=== PATIENT | male | born 1965 | race Caucasian/White ===

== ENCOUNTER → 2022-06-28 15:18 | Outpatient (BNVA) | payer OTHER, SELFPAY | PROVIDERS: Visit Provider Specialist | DX: G56.03 Carpal tunnel syndrome, bilateral upper limbs (principal); G62.89 Other specified polyneuropathies | CPT/HCPCS: 95913 ==

== ENCOUNTER → 2022-08-09 08:34 | Outpatient (BNVA) | payer OTHER, SELFPAY | PROVIDERS: Visit Provider Specialist | DX: R20.0 Anesthesia of skin (principal); R20.2 Paresthesia of skin; G56.02 Carpal tunnel syndrome, left upper limb; G62.9 Polyneuropathy, unspecified; G25.81 Restless legs syndrome; M21.41 Flat foot [pes planus] (acquired), right foot; M21.42 Flat foot [pes planus] (acquired), left foot | CPT/HCPCS: 36415; 82085; 82607; 85651; 86140; 86334; 99204 ==

== ENCOUNTER → 2022-11-02 12:19 | Outpatient (BNVA) | payer OTHER, SELFPAY | PROVIDERS: Visit Provider Specialist | DX: G56.02 Carpal tunnel syndrome, left upper limb (principal); G62.9 Polyneuropathy, unspecified; G25.81 Restless legs syndrome | CPT/HCPCS: 99213 ==

== ENCOUNTER → 2023-01-02 10:06 | Outpatient (BNVA) | payer OTHER, SELFPAY | PROVIDERS: Referring Provider Specialist; Visit Provider Specialist | DX: G56.02 Carpal tunnel syndrome, left upper limb (principal) | CPT/HCPCS: 73110; 99204 ==

== ENCOUNTER → 2023-02-27 09:41 | Outpatient (BNVA) | payer OTHER, SELFPAY | PROVIDERS: Visit Provider Specialist | DX: G56.02 Carpal tunnel syndrome, left upper limb (principal); G62.9 Polyneuropathy, unspecified; R20.0 Anesthesia of skin; R20.2 Paresthesia of skin | CPT/HCPCS: 99213 ==

== ENCOUNTER → 2023-06-23 11:49 | Outpatient (BNVA) | payer OTHER, SELFPAY | PROVIDERS: Visit Provider Nurse Practitioner | DX: Z01.810 Encounter for preprocedural cardiovascular examination (principal); G56.02 Carpal tunnel syndrome, left upper limb | CPT/HCPCS: 36415; 80053; 85025; 99214 ==

== ENCOUNTER 2023-07-21 06:10 | Day surgery (SDC) | payer OTHER, SELFPAY ==
[2023-07-21] VITALS (9 sets, daily range): BP systolic 97–127; BP diastolic 69–85; PULSE 79–88; RESP 10–20; TEMP 36.6–36.7; O2SAT 93–98; BMI 31.1
[2023-07-21] MEDS: CELEcoxib 200 mg Capsule 400 MG PO (06:52)
[2023-07-21] MEDS: sodium chloride 0.9% 1,000 ML 30 ML IV (06:54)
--- NOTE | 2023-07-21 07:06 | ANES.PREANE2 ---
Pre-Anesthetic Assessment Height/Weight: Height 1.83 m O2 Del Method Room Air 07/21/23 06:44 Operation Date: 07/21/23 10:10 Proposed Procedures p Left wrist carpal tunnel release [id number],G56.02(Left) - Dixie Maciel MD Familial anesthetic complications: none Was Beta Nasim taken within 24 hours: N/A Was Clonidine taken within 24 hours: N/A Last intake: Intake Last Liquid Date 07/20/23 Last Liquid Time 20:00 Last Solid Date 07/20/23 Last Solid Time 20:00 Social No alcohol and No tobacco Exam alert, oriented x 3, clear to auscultation bilaterally and regular rate & rhythm Airway Dentition: full History/ROS No significant complaints Anesthetic Plan ASA status: 1 Anesthesia: General Risk of > 500 ml blood loss (7ml/kg in children): No Medications/Allergies Home Medications Medication Instructions Recorded Confirmed Last Taken Type bupropion HCl 300 mg 24 hr tablet, 300 mg PO QAM 06/28/22 07/20/23 07/20/23 History extended release pramipexole 1 mg tablet (Mirapex) 1 mg PO BID #90 tabs 07/14/23 07/20/23 07/20/23 Rx Allergies Allergy/AdvReac Type Severity Reaction Status Date / Time No Known Allergies Allergy Verified 06/23/23 10:36 Current Medications Generic Name Dose Route Start Last Admin Trade Name Freq PRN Reason Stop Dose Admin Sodium Chloride 1,000 mls @ 30 mls/hr 07/21/23 06:30 07/21/23 06:54 Sodium Chloride 0.9% IV 07/22/23 06:29 30 mls/hr .Q24H CARLEY Administration PFSH Anesthesia Social History Smoking and tobacco/nicotine status: never used tobacco/nicotine Alcohol intake: never Substance/Drug Use: never Data Anesthesia Cardiac Studies: No Data to Display
[2023-07-21] MEDS: gabapentin 300 mg Capsule PO (07:08)
[2023-07-21] MEDS: acetaminophen 1,000 MG/100 ML PIGGYBACK 400 MG IV (07:08)
--- NOTE | 2023-07-21 10:23 | P.HPUD_ITS ---
Surgery/Procedure H&P Update DATE OF PROCEDURE: July 21, 2023 DATE H&P PERFORMED: 07/23/23 H&P UPDATE INFORMATION: I have reviewed H&P completed within last 30 days, I have examined patient prior to procedure, No changes to prior documentation and [place] [facility] [place] indicated PRIMARY INDICATION FOR PROCEDURE: Left carpal tunnel syndrome PLANNED PROCEDURE: Operation Date: 07/21/23 10:10 Proposed Procedures p Left wrist carpal tunnel release [id number],G56.02(Left) - Dixie Maciel MD Related Problem List Diagnoses (1) Left carpal tunnel syndrome:
[2023-07-21] MEDS: ceFAZolin 2,000 MG in sodium chloride 0.9% (plus) 50 ML 100 MG IV (10:47)
[2023-07-21] MEDS: BUPivacaine 0.5% INJ 30 mL XX (11:08)
--- NOTE | 2023-07-21 11:54 | PM.OP ---
Operative Report Date of procedure: July 21, 2023 Pre-op diagnosis: Left carpal tunnel syndrome Post-op diagnosis: Left carpal tunnel syndrome Post-op findings: Significant compression across the median nerve with dense fibrous tissue in the carpal canal Procedure done: Left carpal tunnel release Pathology: None Surgeon: Dixie Maciel MD Boiler Or Engine Operator: None Anesthesia: General (Per LMA, ASA 1) Estimated blood loss (mL): 5 Tourniquet time (min): 24 (At 250 mmHg) IV fluids (mL): 1,000 Urine output (mL): 0 (No Farley) Complications: None Condition: stable Disposition: PACU (Then return to same-day surgery for discharge to home) Brief History: This 57-year-old gentleman presented to the office complaining of left wrist pain as well as numbness and tingling and pain that was sharp and needlelike. EMG and nerve conductions were done on May 29, 2023, and these demonstrated findings consistent with carpal tunnel syndrome which was moderately severe. After discussion, the patient wished to proceed with carpal tunnel release. Questions were answered and consents were signed. Procedure: The patient was brought to the operating theater. Patient was administered general anesthesia per LMA, ASA 1. The tourniquet was elevated after the arm was exsanguinated to 250 mmHg for a total tourniquet time of 24 minutes. The patient was also given Ancef 2 g preoperatively. The arm was then prepped and draped with DuraPrep in usual fashion with the arm draped free. A surgical pause was performed. At the time, the surgical pause, we confirmed the site and side of surgery. We also confirmed the patient's identity, appropriate and timely administration of preoperative antibiotics and preoperative surgical markings. An incision was then made along the thenar crease. The incision crossed the wrist joint in a curvilinear fashion. Dissection continued through skin and soft tissues using a scalpel. The palmaris longus was identified along with the transverse carpal ligament. Each of these was released carefully to avoid injury to the median nerve. We were able to dissect gently into the carpal canal which was noted to be quite tight with significant compression across the median nerve. The nerve was visualized and was an hourglass shape. The canal was subsequently palpated to assure there was no bony encroachment upon the canal. There was a quite thickened fibrous tissue within the canal, and this was opened longitudinally as well. The canal was then palpated distally and proximally to assure that my small finger was passed easily without impingement. Finding this to be so, attention was directed to closure. The wound was irrigated with ropivacaine plain. It was then closed with 3-0 nylon in an interrupted mattress fashion. Sterile dressing was then placed consisting of OPTi light, fluffed fluffs, sterile soft roll, and an Eladio wrap. The tourniquet was released after 24 minutes. There were no complications. There were no specimens. The procedure was well tolerated. Plan is the patient will be discharged home. Related Problem List Diagnoses (1) Left carpal tunnel syndrome:
--- NOTE | 2023-07-21 13:38 | ANE.PACU2 ---
Inpatient post-anesthesia follow up: Airway intact: Yes Vital signs: Temperature 97.8 F Pulse Rate 79 Respiratory Rate 16 Blood Pressure 114/72 Pulse Oximetry 97 Oxygen Delivery Me thod Room Air Oxygen Flow Rate 6 Fraction of Inspir ed Oxygen Hydration adequate: Yes Nausea and vomiting: No Pain level: 1 Mental status: Baseline
== END 2023-07-21 12:45 | disposition home or self-care (01) ==
PROVIDERS: Visit Provider Specialist
PROC: (CPT 64721; principal; 2023-07-21 10:10)
DX: G56.02 Carpal tunnel syndrome, left upper limb (principal)
CPT/HCPCS: 64721; J0131; J0690; J1100; J2405; J2704; J3010; J3490; J7030

== ENCOUNTER → 2023-08-04 08:08 | Outpatient (BNVA) | payer OTHER, SELFPAY | PROVIDERS: Visit Provider Nurse Practitioner | DX: G56.02 Carpal tunnel syndrome, left upper limb (principal); Z98.890 Other specified postprocedural states | CPT/HCPCS: 73130; 99024 ==

== ENCOUNTER → 2023-09-20 13:45 | Outpatient (BNVA) | payer OTHER, SELFPAY | PROVIDERS: Visit Provider Nurse Practitioner | DX: Z98.890 Other specified postprocedural states (principal); G56.03 Carpal tunnel syndrome, bilateral upper limbs | CPT/HCPCS: 99213 ==

== ENCOUNTER 2023-10-11 09:30 | Outpatient (RCR) | payer OTHER, SELFPAY | END 2023-10-19 23:59 | disposition home or self-care (01) | LOC: SOT 09:30 | PROVIDERS: Visit Provider Nurse Practitioner | DX: Z47.89 Encounter for other orthopedic aftercare (principal) | CPT/HCPCS: 97110; 97166 ==

== ENCOUNTER → 2023-11-01 12:40 | Outpatient (BNVA) | payer OTHER, SELFPAY | PROVIDERS: Visit Provider Specialist | DX: G25.81 Restless legs syndrome (principal); G62.9 Polyneuropathy, unspecified | CPT/HCPCS: 99212 ==

== ENCOUNTER → 2023-11-10 09:47 | Outpatient (BNVA) | payer OTHER, SELFPAY | PROVIDERS: Visit Provider Nurse Practitioner | DX: M18.11 Unilateral primary osteoarthritis of first carpometacarpal joint, right hand (principal); G56.01 Carpal tunnel syndrome, right upper limb; Z98.890 Other specified postprocedural states | CPT/HCPCS: 99214 ==

== ENCOUNTER → 2024-03-04 12:45 | Outpatient (BNVA) | payer OTHER, SELFPAY | PROVIDERS: Visit Provider Specialist | DX: G56.01 Carpal tunnel syndrome, right upper limb (principal); M18.11 Unilateral primary osteoarthritis of first carpometacarpal joint, right hand | CPT/HCPCS: 73130; 99214 ==

== ENCOUNTER 2024-03-19 05:46 | Day surgery (SDC) | payer OTHER, SELFPAY ==
[2024-03-19] VITALS (9 sets, daily range): BP systolic 106–133; BP diastolic 75–92; PULSE 71–90; RESP 16–18; TEMP 36.1–36.4; O2SAT 92–98; BMI 28.5
[2024-03-19] MEDS: CELEcoxib 200 mg Capsule 400 MG PO (06:16)
[2024-03-19] MEDS: gabapentin 300 mg Capsule PO (06:16)
[2024-03-19] MEDS: acetaminophen 1,000 MG/100 ML PIGGYBACK 400 MG IV (06:17)
[2024-03-19] MEDS: sodium chloride 0.9% 1,000 ML 30 ML IV (06:18)
--- NOTE | 2024-03-19 06:30 | ANES.PREANE2 ---
Pre-Anesthetic Assessment Height/Weight: Height 1.83 m Weight 95.254 kg Temp Pulse Resp BP Pulse Ox O2 Del Method 97.6 F 90 18 133/92 97 Room Air 03/19/24 06:06 03/19/24 06:06 03/19/24 06:06 03/19/24 06:06 03/19/24 06:06 03/19/24 06:06 Operation Date: 03/19/24 07:00 Proposed Procedures p Carpal Tunnel Release(Right) - Dixie Mcaiel MD Familial anesthetic complications: None Was Beta Nasim taken within 24 hours: N/A Was Clonidine taken within 24 hours: N/A Last intake: Intake Last Liquid Date 03/18/24 Last Liquid Time 20:00 Last Solid Date 03/18/24 Last Solid Time 20:00 Social No alcohol and No tobacco Exam alert, oriented x 3, clear to auscultation bilaterally and regular rate & rhythm Airway Mallampati: Class III Dentition: other (front upper bridge is chipped) Neuropsych RLS Anesthetic Plan ASA status: 2 Anesthesia: General Risk of > 500 ml blood loss (7ml/kg in children): No Medications/Allergies Home Medications Medication Instructions Recorded Confirmed Last Taken Type bupropion HCl 300 mg 24 hr tablet, 300 mg PO QAM 06/28/22 03/18/24 03/18/24 History extended release gabapentin 300 mg capsule 300 mg PO DAILY PRN Pain 09/20/23 03/18/24 Unknown History pramipexole 1 mg tablet 1 mg PO BID #90 tabs 11/01/23 03/18/24 03/18/24 Rx Allergies Allergy/AdvReac Type Severity Reaction Status Date / Time No Known Allergies Allergy Verified 03/04/24 13:19 Current Medications Generic Name Dose Route Start Last Admin Trade Name Freq PRN Reason Stop Dose Admin Sodium Chloride 1,000 mls @ 30 mls/hr 03/19/24 06:00 03/19/24 06:18 Sodium Chloride 0.9% IV 03/20/24 05:59 30 mls/hr .Q24H CARLEY Administration PFSH Anesthesia Medical History Arthritis of carpometacarpal (CMC) joint of right thumb Right carpal tunnel syndrome Surgical History Status post carpal tunnel release Left wrist carpal tunnel release. Dr. Dixie Maciel MD. DOS: 07/21/2023 Social History Smoking and tobacco/nicotine status: never used tobacco/nicotine Alcohol intake: never Substance/Drug Use: never Data Anesthesia Cardiac Studies: No Data to Display
--- NOTE | 2024-03-19 07:00 | W.PM.OPSUD ---
Surgery/Procedure H&P Update DATE OF PROCEDURE: March 19, 2024 DATE H&P PERFORMED: 03/04/24 H&P UPDATE INFORMATION: I have reviewed H&P completed within last 30 days, I have examined patient prior to procedure, No changes to prior documentation and H&P is in [facility] [place] EMR on date indicated PLANNED PROCEDURE: Operation Date: 03/19/24 07:00 Proposed Procedures p Carpal Tunnel Release(Right) - Dixie Maciel MD Related Problem List Diagnoses (1) Right carpal tunnel syndrome:
[2024-03-19] MEDS: ceFAZolin 2,000 mg SDV 2000 MG IVP (07:02)
[2024-03-19] MEDS: BUPivacaine 0.5% INJ 30 mL XX (07:26)
--- NOTE | 2024-03-19 08:10 | P.OP_ITS ---
Operative Report Date of procedure: March 19, 2024 Pre-op diagnosis: Right carpal tunnel syndrome Post-op diagnosis: Right carpal tunnel syndrome Post-op findings: Significant compression across the carpal canal with hourglass deformity and dense fibrous tissue Procedure done: Right carpal tunnel release Implants: None Pathology: None Surgeon: Dixie Maciel MD Acid Regenerator: None Anesthesia: General (Per LMA, ASA 2) Estimated blood loss (mL): 2 Tourniquet time (min): 13 (At 250 mmHg) IV fluids (mL): 500 Urine output (mL): 0 (No Farley) Complications: None Disposition: PACU (Then return to same-day surgery for discharge to home) Brief History: This 58-year-old gentleman presents today for right carpal tunnel release. The patient previously underwent left carpal release in July 2023, and he is doing well from this. The patient continued to have symptoms related to his right carpal tunnel syndrome. 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 The patient wished to proceed with right carpal tunnel release, risks and complications were discussed in the office. Consents were signed, and questions were answered. Procedure: The patient was brought to the operating theater. Patient was administered general anesthesia per LMA, ASA 2. The tourniquet was elevated after the arm was exsanguinated to 250 mmHg for a total tourniquet time of 13 minutes. The patient was also given Ancef 2 g preoperatively. The arm was then prepped and draped with DuraPrep in usual fashion with the arm draped free. A surgical pause was performed. At the time, the surgical pause, we confirmed the site and side of surgery. We also confirmed the patient's identity, appropriate and timely administration of preoperative antibiotics and preoperative surgical markings. An incision was then made along the thenar crease. The incision crossed the wrist joint in a curvilinear fashion. Dissection continued through skin and soft tissues using a scalpel. The palmaris longus was identified along with the transverse carpal ligament. Each of these was released carefully to avoid injury to the median nerve. We were able to dissect gently into the carpal canal which was noted to be quite tight with significant compression across the median nerve. The nerve was visualized and was an hourglass shape. The canal was subsequently palpated to assure there was no bony encroachment upon the canal. There was a quite thickened fibrous tissue within the canal, and this was opened longitudinally as well. The canal was then palpated distally and proximally to assure that my small finger was passed easily without impingement. Finding this to be so, attention was directed to closure. The wound was irrigated with ropivacaine plain. It was then closed with 3-0 nylon in an interrupted mattress fashion. Sterile dressing was then placed consisting of Dermabond, OpSite, fluffed fluffs, sterile soft roll, and an Eladio wrap. The tourniquet was released after 13 minutes. There were no complications. There were no specimens. The procedure was well tolerated. Plan is the patient will be discharged home. Related Problem List Diagnoses (1) Right carpal tunnel syndrome:
--- NOTE | 2024-03-19 08:25 | ANE.PACU2 ---
Inpatient post-anesthesia follow up: Airway intact: Yes Vital signs: Temperature 97 F Pulse Rate 71 Respiratory Rate 16 Blood Pressure 117/80 Pulse Oximetry 92 Oxygen Delivery Me thod Room Air Oxygen Flow Rate 6 Fraction of Inspir ed Oxygen Hydration adequate: Yes Nausea and vomiting: No Pain level: 1 Mental status: Baseline
== END 2024-03-19 07:15 | disposition home or self-care (01) ==
PROVIDERS: Visit Provider Specialist
PROC: (CPT 64721; principal; 2024-03-19 07:00)
DX: G56.01 Carpal tunnel syndrome, right upper limb (principal)
CPT/HCPCS: 64721; J0131; J0690; J1100; J2371; J2405; J2704; J3010; J3490; J7030

== ENCOUNTER → 2024-04-01 12:49 | Outpatient (BNVA) | payer OTHER, SELFPAY | PROVIDERS: Visit Provider Nurse Practitioner | DX: Z98.890 Other specified postprocedural states (principal) | CPT/HCPCS: 99024 ==

== ENCOUNTER → 2024-04-29 10:38 | Outpatient (BNVA) | payer OTHER, SELFPAY | PROVIDERS: Visit Provider Nurse Practitioner | DX: Z98.890 Other specified postprocedural states (principal) | CPT/HCPCS: 99213 ==

== ENCOUNTER → 2024-11-06 15:09 | Outpatient (BNVA) | payer OTHER, SELFPAY | PROVIDERS: Visit Provider Specialist | DX: G25.81 Restless legs syndrome (principal); G62.9 Polyneuropathy, unspecified; G47.00 Insomnia, unspecified | CPT/HCPCS: 99214 ==